=== PATIENT | male | born 1985 | race Caucasian/White ===

== ENCOUNTER 2018-07-22 11:30 | Day surgery (SDC) | payer OTHER ==
[~2018-07-22 11:30] MED LIST: CEFAZOLIN 2 GM/50 ML (PMX) 50 ML IVPB
[2018-07-22] MEDS: SOD CHLORIDE 0.9% 1,000 ML IV (12:12)
[2018-07-22] MEDS ORDERED: DIPHENHYDRAMINE 50 MG INJ IV (15:30)
[2018-07-22] MEDS ORDERED: OXYCODONE/ACETAMINOPHEN (5/325) TAB PO ×2 (15:30)
[2018-07-22] MEDS ORDERED: FENTAnyl 50 MCG/ML VIAL IV ×3 (15:30)
[2018-07-22] MEDS ORDERED: HYDROmorphONE 1 MG/5 ML IV SYRINGE IV (15:30)
[2018-07-22] MEDS ORDERED: LIDOCAINE 2% (SDV) 5 ML INJ (15:38)
[2018-07-22] MEDS ORDERED: SUCCINYLCHOLINE CHLORIDE 100 MG/5 ML SYG IV (15:38)
[2018-07-22] MEDS ORDERED: ROCURONIUM 50 MG INJ ×3 (15:38→17:16)
[2018-07-22] MEDS ORDERED: PROPOFOL 20 ML ×2 (15:38→15:57)
[2018-07-22] MEDS ORDERED: ROPIVACAINE 0.5 % 30 ML VIAL (15:38)
[2018-07-22] MEDS ORDERED: MIDAZOLAM 1 MG/ML 2 ML INJ (15:38)
[2018-07-22] MEDS ORDERED: FENTAnyl 50 MCG/ML VIAL (15:38)
[2018-07-22] MEDS ORDERED: CEFAZOLIN 1 GM INJ (15:59)
[2018-07-22] MEDS ORDERED: DEXAMETHASONE 4 MG/ML 1 ML INJ (15:59)
[2018-07-22] MEDS ORDERED: FAMOTIDINE 20 MG INJ (15:59)
[2018-07-22] MEDS ORDERED: ONDANSETRON 4 MG INJ (16:00)
[2018-07-22] MEDS ORDERED: EPHEDrine SULFATE 50 MG/5 ML SYG (16:05)
[2018-07-22] MEDS ORDERED: HYDROmorphONE 2 MG/ML SYG (17:17)
[2018-07-22] MEDS ORDERED: NEOSTIGMINE 3 MG/3 ML SYRINGE (18:07)
[2018-07-22] MEDS ORDERED: GLYCOPYRROLATE 0.4 MG INJ (18:07)
[2018-07-22] MEDS: HYDROmorphONE 1 MG/5 ML IV SYRINGE IV ×2 (18:50→18:57)
[2018-07-22] MEDS: MEPERIDINE 25 MG INJ IV (18:57)
[2018-07-22] MEDS: ONDANSETRON 4 MG INJ IV (18:57)
[2018-07-22] MEDS ORDERED: HYDROCODONE/APAP (5/325) TAB PO (19:00)
[2018-07-22] MEDS: PROCHLORPERAZINE 10 MG INJ IV (19:57)
[2018-07-22] MEDS: HYDROCODONE/APAP (5/325) TAB PO (20:02)
== END 2018-07-22 20:30 | disposition home or self-care (01) ==
LOC: SDS 11:30
DX: K40.20 Bilateral inguinal hernia, without obstruction or gangrene, not specified as recurrent (principal)
CPT/HCPCS: 49650; 74018; 88304